=== PATIENT | female | born 1965 | race Caucasian/White ===

== ENCOUNTER 2024-01-12 18:20 | Emergency (ER) | payer MEDICARE, MEDICAID, SELFPAY ==
--- NOTE | ~2024-01-12 | CT_ITS ---
EXAMINATION: CTA chest PE protocol DATE: 01/12/2024 22:10 INDICATION: Shortness of breath. TECHNIQUE: Computed tomography angiography (CTA) of the chest was performed with 100 mL Omnipaque-350 intravenous contrast timed to evaluate the pulmonary arteries. Coronal maximum intensity projection 3D-reconstructions were created by the technologist. Automated exposure control and iterative reconst ruction technique were employed. The dose-length product was 244.04 mGy-cm. COMPARISON: Chest CT 08/07/2006 FINDINGS: The lungs demonstrate mild atelectasis. No pleural effusion. The heart size is normal. No p ericardial effusion. There is no pulmonary embolus. There is a small sliding hiatal hernia. There is mild thoracic spondylosis. IMPRESSION: 1. No pulmonary embolus. 2. Small sliding hiatal hernia. Reviewed, dictated and finalized at location A.
--- NOTE | ~2024-01-12 | XR_ITS ---
EXAMINATION: XR chest 1V portable DATE: 01/12/2024 19:27 INDICATION: Weakness. TECHNIQUE: A single frontal view of the chest was obtained. COMPARISON: Chest 2 views 08/06/2006 FINDINGS: There is no pneumonia, pleural effusion, or pneumothorax. The heart size is normal. IMPRESSION: 1. No acute cardiopulmonary disease. Reviewed, dictated and finalized at location A.
[2024-01-12 18:25] VITALS: BP 144/80; PULSE 70; RESP 18; TEMP 36.4; O2SAT 97
[2024-01-12 19:07] LABS: Add Urine Microscopic? NO; Appearance Urine Clear (Clear); Bilirubin Urine Negative (Negative); Blood Urine Negative (Negative); Color Urine Yellow (Yellow); Glucose Urine UA Negative (Negative); Ketones Urine Negative (Negative); Leukocyte Esterase Ur Negative LEU/UL (Negative); Nitrate Urine Negative (Negative); Protein Urine Negative (Negative); Specific Grav Ur 1.005 (1.001-1.035); Urobilinogen Urine 0.2 mg/dL (<2.0)
--- NOTE | 2024-01-12 19:20 | ED.WEAKNESS ---
HPI - Weakness General Chief complaint: Weakness <Elizabeth Carter APRN - Last Filed: 01/12/24 19:27> Stated complaint: FATIGUE FOR A WHILE <Elizabeth Carter APRN - Last Filed: 01/12/24 19:27> Time Seen by Provider: 01/12/24 19:10 <Elizabeth Carter APRN - Last Filed: 01/12/24 19:27> Focused HPI: Patient is a 59-year-old female who presents to the ER with increased weakness and tiredness that started a while ago. She reports she has a history of congestive heart failure, cardiac issues, high blood pressure and osteoporosis. Patient reports she has been unable to get in to see her primary care provider for a while and does not have an appointment with him until February so she wanted to come in and get checked out. she reports she has not been feeling like herself. Patient reports she wears compression socks but she has increased bilateral lower extremity swelling. She endorses recent shortness of breath and a swollen right knee. Patient denies any chest pain, signs or symptoms of illness, or one-sided weakness/ tingling/ numbness. GENERAL: Well-appearing, well-nourished, and in no acute distress. HEAD: Normocephalic, atraumatic. CHEST: Clear to auscultation. ?No respiratory distress. Swollen bilateral lower extremities. HEART: Regular rate and rhythm.? NEURO: ?Alert and oriented x3. Patient screened in triage and initial orders placed.? ?Additional care and disposition to be based upon?diagnostic testing and treatment. <Elizabteh Carter APRN - Last Filed: 01/12/24 19:27> Related Data Home medications: Home Medications Medication Instructions Recorded Confirmed calcium carbonate 600 mg PO BID 09/23/23 09/23/23 cholecalciferol (vitamin D3) 1,250 1,250 mcg PO MONTHLY 09/23/23 09/23/23 mcg (50,000 unit) capsule denosumab 60 mg/mL subcutaneous 60 mg subcut [id number] 09/23/23 09/23/23 syringe (Prolia) <Elizabeth Carter APRN - Last Filed: 01/12/24 19:27> Allergies/Adverse reactions: Allergies Allergy/AdvReac Type Severity Reaction Status Date / Time morphine Allergy Mild Unknown Verified 01/12/24 20:35 Sulfa (Sulfonamide Allergy Unknown Unknown Verified 01/12/24 20:35 Antibiotics) sulfamethoxazole Allergy Unknown Unknown Verified 01/12/24 20:35 trimethoprim Allergy Unknown Unknown Verified 01/12/24 20:35 <Elizabeth Carter APRN - Last Filed: 01/12/24 19:27> Review of Systems Review of Systems: All systems are reviewed and are negative unless stated otherwise in the HPI. <Rony Scherer MD - Last Filed: 01/12/24 22:35> PMFSH Past Medical History Medical History: Medical History Osteomyelitis Osteoporosis <Elizabeth Carter APRN - Last Filed: 01/12/24 19:27> Family History Family History: Family History Father Hypertension <Elizabeth Carter APRN - Last Filed: 01/12/24 19:27> Social History Social History: Social History Smoking status: Never smoker Alcohol intake: never Substance use: never Substance use type: does not use <Elizabeth Carter APRN - Last Filed: 01/12/24 19:27> Exam Narrative: General: Alert, awake, afebrile, in no acute distress. HEENT: PERRL, no rhinorrhea, no post nasal drip, oropharynx clear. Neck: Trachea midline, no JVD, no lymphadenopathy. Cardiovascular: Regular rate and rhythm, no murmurs, rubs or gallops, no peripheral edema. Respiratory: Clear to auscultation bilaterally, no tachypnea, no wheezing, no rhonchi, no rubs, no respiratory distress. Abdomen: Soft, nontender, nondistended, no rebound, no guarding, no peritoneal signs. Musculoskeletal: No joint swelling or deformity, normal muscle tone. Skin: No rashes or petechia, no signs of infection. Psychiatric: Alert and oriented, normal behavior and judgm
--- NOTE | 2024-01-12 19:28 | ECG_ITS ---
Test Date: 2024-01-12 20:17:27 Measurements Intervals [place] Rate: 64 P: 58 WY: 159 QRS: 19 QRSD: 88 T: 50 QT: 358 QTc: 371 Interpretive Statements SINUS RHYTHM LOW QRS VOLTAGE IN PRECORDIAL LEADS [QRS DEFLECTION < 1.0 mV IN CHEST LEADS] No previous ECG available for comparison Electronically Signed On 01-13-2024 09:41:11 CDT by Mely El M.D.
[2024-01-12 20:24] VITALS: BP 136/88; PULSE 69; PULSE 74; RESP 18; O2SAT 99
[2024-01-12 20:39] LABS: Basophils Absolute Auto 0.1 K/mm3 (0.0-0.1); Basophils Percent Auto 0.9 % (0.2-1.2); Eosinophils Absolute Auto 0.2 K/mm3 (0-0.3); Eosinophils Percent Auto 2.8 % (0-4.4); Hematocrit 41.4 % (37.0-47.0); Immature Granulocyte Absolute 0.01 K/mm3 (0.00-0.031); Immature Granulocyte Percent A 0.2 % (0-0.5); Lymphocytes Absolute Auto 1.73 K/mm3 (0.9-3.2); Lymphocytes Percent Auto 32.6 % (18.3-44.2); Mean Corpuscular HGB Conc 33.8 g/dl (32-36); Mean Corpuscular Hemoglobin 31.7 pg (26-34); Mean Corpuscular Volume 93.9 fl (80-100); Mean Platelet Volume 10.9 fl (7.4-10.4); Monocytes Absolute Auto 0.5 K/mm3 (0.1-0.6); Monocytes Percent Auto 9.8 % (2.6-8.5); Neutrophils Absolute Auto 2.9 K/mm3 (1.3-6.7); Neutrophils Percent Auto 53.7 % (45.5-73.1); Platelet Count Result 216 k/mm3 (150-375); Red Blood Count 4.41 M/mm3 (4.2-5.4); Red Cell Distribution Width 13.2 % (11.5-14.5); White Blood Count 5.3 K/mm3 (4.5-10.0)
[2024-01-12 20:50] LABS: Alanine Aminotransferase 21 U/L (6-35); Albumin Level 4.4 g/dL (3.5-5.1); Alkaline Phosphatase 68 U/L (38-126); Anion Gap 8 mmol/L (4-12); Aspartate Amino Transferase 23 U/L (14-36); Bilirubin,Total 0.4 mg/dL (0.2-1.3); Blood Urea Nitrogen 18 mg/dL (7-17); Carbon Dioxide 28 mmol/L (22-30); Chloride 101 mmol/L (98-107); Estimated Glomerular Filt Rate > 60; Glucose 96 mg/dL (65-110); Potassium 3.7 mmol/L (3.4-5.0); Prothrombin Time 13.3 Seconds (11.1-14.7); Sodium 137 mmol/L (137-145)
[2024-01-12 20:51] LABS: Partial Thromboplastin Time 30.2 Seconds (22.3-36.8)
[2024-01-12 21:01] LABS: NT Pro B Type Natriuretic Pept 261 pg/mL (19.9-100); Troponin I < 0.012 ng/mL (0.000-0.034)
--- NOTE | 2024-01-12 23:00 | PC.NURSE ---
Upon dc, patient was demanding to receive a cab voucher because she did not want to call her from who lives in another city. Pt advised that there are stipulations to patients receiving cab vouchers and that a ride to [place] typically costs about $20-25. Patient stated she did not want to pay that and demanded that I speak with the charge nurse about it. ED Charge, Caridad, notified and stated pt will not be receiving voucher. Pt informed and stated she will be calling to make a complaint. Pt given phone numbers for the local [employer] companies. This RN offered pt help with carrying her belongings to waiting room and patient denied stated she is not satisfied with her care.
== END 2024-01-12 23:00 | disposition home or self-care (01) ==
PROVIDERS: Registered Nurse; Emergency Provider Emergency Medicine; PCP Internal Medicine Gastroenterology
DX: R53.1 Weakness (principal)
CPT/HCPCS: 36415; 71045; 71275; 80053; 81003; 83735; 83880; 84484; 85025; 85610; 85730; 93005; 99284; Q9967

== ENCOUNTER 2024-09-27 11:00 | Outpatient (CLI) | payer MEDICARE, MEDICAID, SELFPAY ==
--- NOTE | ~2024-09-27 | DEXA_ITS ---
Bone Density Report Name: MARILOU ANDERS Age: 59 Sex: Female Ethnicity: White Date of : 1965 Indication: postmenopausal; screening for osteoporosis; height loss; prior fracture; hysterectomy; Referring Provider: ANGELINA, RICKY Study: Bone densitometry was performed. Exam Date: September 27, 2024 Accession number: [id number] Bone Density: Region BMD T-score Z-score Classification AP Spine(L1-L4) 0.970 -0.7 0.8 Normal Femoral Neck (Right) 0.596 -2.3 -1.0 Osteopenia Total Hip (Right) 0.838 -0.9 0.1 Normal World Health Organization criteria for BMD impression classify patients as: Normal (T-score at or above -1.0), Osteopenia (T-score between -1.0 and -2.5), or Osteoporosis (T-score at or below -2.5). 10-year Fracture Risk: FRAX not reported because: Prior hip or vertebral fracture Treated for osteoporosis Clinical Information Provided by Patient: Have had a previous hip or vertebral fracture Has had a low trauma fracture Is being treated for osteoporosis Has used the following medications: Prolia (i.e. denosumab), Vitamin D, Calcium Has the following medical conditions: Hysterectomy Patient maximum height was 64 Menopause Age: 38 Onset of menses at age 15 Number of children 2 Impression: The patient has low bone mass, based on the Right Femoral Neck T-score. The patient has risk factors, including: previous fracture. Discussion: It is important to ask patients whether they are taking their medications and to encourage continued and appropriate compliance with their osteoporosis therapies to reduce fracture risk. It is also important to review their risk factors and encourage appropriate calcium and vitamin D intakes, exercise, fall prevention and other lifestyle measures. Follow-Up: Consider a repeat BMD and Vertebral Fracture Assessment (VFA) exam in 2 years or sooner if medically necessary, to reassess this patient's status. Reported by: BERKLEY on 09/27/2024 11:30:00 AM. Reviewed, dictated and finalized at location A.
--- OUTSIDE RECORDS SUMMARY | 2024-09-27 11:14 | XMS_ITS ---
Author Organization [facility] Address [address] [place] [address] Care Team Providers Care Nurse Quality Name Role Phone Deena Cason Primary Care Provider REASON FOR VISIT new pt;seen at [facility] Encounters Encounter Location Date Provider Diagnosis [address] [facility] [place] [address] 04/14/2023 Deena Cason Plan Of Treatment No Information Progress Notes * Nabeel HOLLEYOB: 4 (59 yo F)Acc No.[id number]:04/14/2023 UNLOCKED PROGRESS NOTE Patient: Karina WHITT Provider: Dave Cason :1965 A ge:58 Y S ex:Female Date:04/14/2023 [facility] Subjective: * Chief Complaints: * 1 . new pt;seen at [facility]. * Medical History: Objective: * Vitals: Assessment: Plan: * Treatment: * * Electronic signature of Deena Cason MD, [id number] on 09/27/2024 at 11:14 AM CDT Sign off status: Pending * Provider: Dave Cason Date: 04/14/2023 Generated for Dustin doherty/Pepper/Gissell on: 0 09/27/2024 11:14 AM CDT
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
--- OUTSIDE RECORDS SUMMARY | 2024-09-27 11:14 | XMS_ITS | Referral Summary ---
Author Organization [facility] Address [facility] [place] [address] Care Team Providers Care Enrollment Clerk Name Role Phone Sheridan Ball MD Primary Care Provider Allergies Active Allergy Reactions Criticality Noted Date Comments Morphine Anaphylaxis,Other (See comments) High 2016 Per pt, during Med Hx interview -she experiences bladder shutdown with Morphine Opioids - Morphine Analogues Sulfa (Sulfonamide Antibiotics) Medications celecoxib (CeleBREX) 200 mg capsule celecoxib 200 mg caps Active CIPROFLOXACIN HCL ORAL ciprofloxacin hcl 250 mg tabs Active difluprednate (DUREZOL) 0.05 % drops durezol 0.05 % emul Active fluorometholon e (FML) 0.1 % ophthalmic suspension fluorometholone 0.1 % susp Active methylPREDNISo lone (MEDROL DOSEPACK) 4 mg Dosepack methylprednisolone 4 mg tablets in a dose pack Active ofloxacin (OCUFLOX) 0.3 % ophthalmic solution ofloxacin 0.3 % soln Active naproxen (NAPROSYN) 375 mg tablet naproxen 375 mg tabs Active cycloSPORINE (RESTASIS) 0.05 % ophthalmic emulsion restasis 0.05 % emul Active timolol (TIMOPTIC) 0.5 % ophthalmic solution timolol maleate 0.5 % soln Active traMADoL (ULTRAM) 50 mg tablet tramadol hcl 50 mg tabs Active triamcinolone (KENALOG) 0.1 % cream triamcinolone acetonide 0.1 % crea Acti ve moxifloxacin (VIGAMOX) 0.5 % ophthalmic solution vigamox 0.5 % soln A ctive alendronate (FOSAMAX) 70 mg/75 mL solution TAKE 75 ML BY MOUTH every week 12/26/19 Active atorvastatin (LIPITOR) 20 mg tablet atorvastatin 20 mg tablet TAKE ONE TABLET BY MOUTH EVERY DAY Active calcium carbonate (TUMS) 500 mg (200 mg elemental) chewable tablet Take 1 tablet by mouth daily Active Prolia 60 mg/mL syringe INJECT ONE ML under the skin EVERY SIX MONTHS 01/24/20 Active dorzolamide-ti molol (COSOPT) 2-0.5 % ophthalmic solution Cosopt (PF) 2 %-0.5 % eye drops in a dropperette INSTILL 1 DROP INTO AFFECTED EYE(S) BY OPHTHALMIC ROUTE 2 TIMES PER DAY Active dorzolamide-ti molol (COSOPT) 2-0.5 % ophthalmic solution instill one DROP IN EACH EYE TWICE DAILY 01/09/20 22 Active ergocalciferol (VITAMIN D) 50,000 unit capsule Take 50,000 Units by mouth once a week Active ergocalciferol (VITAMIN D) 50,000 unit capsule TAKE ONE CAPSULE BY MOUTH every week WITH a meal 12/31/19 Active fluticasone propionate (FLONASE) 50 mcg/actuation nasal spray fluticasone propionate 50 mcg/actuation nasal spray,suspension Active gabapentin (NEURONTIN) 400 mg capsule Take 400 mg by mouth 2 (two) times a day 01/18/20 22 Active latanoprost (XALATAN) 0.005 % ophthalmic solution latanoprost 0.005 % eye drops Active lifitegrast (Xiidra) 5 % dropperette Xiidra 5 % eye drops in a dropperette Active Xiidra 5 % dropperette instill ONE drop IN EACH EYE TWICE DAILY 01/18/20 22 Active Myrbetriq 25 mg tablet extended release 24 hr TAKE ONE TABLET BY MOUTH EVERY DAY swallowing whole with water, DO not CRUSHED, chew and/or DIVIDE 12/28/19 22 Active moxifloxacin (VIGAMOX) 0.5 % ophthalmic solution Vigamox 0.5 % eye drops Active predniSONE (DELTASONE) 10 mg tablet prednisone 10 mg tablet Take by oral route. Activ e tafluprost (ZIOPTAN) 0.0015 % dropperette Zioptan (PF) 0.0015 % eye drops in a dropperette INSTILL 1 DROP INTO AFFECTED EYE(S) BY OPHTHALMIC ROUTE ONCE DAILY Active timoloL (BetimoL) 0.5 % ophthalmic solution Betimol 0.5 % eye drops Active timolol (TIMOPTIC) 0.25 % ophthalmic solution timolol 0.25 % eye drops INSTILL 1 DROP INTO AFFECTED EYE(S) BY OPHTHALMIC ROUTE 2 TIMES PER DAY Active valACYclovir (VALTREX) 500 mg tablet valacyclovir 500 mg tablet Active carboxymethylc ellulos/glycer in (REFRESH OPTIVE OPHT) Administer 1 drop into affected eye(s) 2 (two) times a day Activ e oxybutynin XL (DITROPAN-XL) 10 mg 24 hr tablet Take 10 mg by mouth daily Active Active Problems Problem Noted Date Diagnosed Date Diagnosis unknown 03/18/2022 Adhesive capsulitis of shoulder 03/18/2022 Brain concussion 03/18/2022 Shoulder pain 03/18/2022 Enthesopathy of hip region 03/18/2022 Hip pain 03/18/2022 Osteoarthritis 03/18/2022 Spinal enthesopathy 03/18/2022 Hiatal hernia 08/26/2019 Bipolar 1 disorder 03/31/2019 Psychosis 03/31/2019 Encephalopathy 11/02/2017 Overview (03/18/2022): Last Assessment & Plan: Suspected stress and psychogenic relate Monitor Reassure Neurology consulted No metabolic Hypokalemia 11/02/2017 Overview (03/18/2022): Last Assessment & Plan: Replacement protocol Renal insufficiency 11/02/2017 Overview (03/18/2022): Last Assessment & Plan: Avoid NSAIDs Avoid nephrotoxic agents Monitor renal levels and lytes Reassure Increase fluids. Altered mental state 11/01/2017 Overview (03/18/2022): Last Assessment & Plan: Suspected psychogenic and dynamics Neurology consulted CT head is negative reassure Monitor UDS is negative Ethanol is negative. Concussion without loss of consciousness 10/14/2 016 Overview (03/18/2022): Last Assessment & Plan: Incident happened 01/05/16 With headache, memory problems and intermittent dizziness, improving MRI Brain: no acute process Continue pain management PRN (Naprosyn) PCP follow up upon dc, patient from [place] Follow clinically Immunizations Immunization Administration Dates Next Due Tdap 2016 Social History Tobacco Use Types Packs/Day Years Used Date Smoking Tobacco: Never Assessed Comments Unknown Sex and Gender Information Value Date Recorded Sex Assigned at Not on file Legal Sex Female 12:42 AM SAW OFFBEARER Gender Identity Not on file Sexual Orientation Not on file Last Filed Vital Signs Vital Sign Reading Time Taken Comments Blood Pressure - - Pulse - - Temperature - - Respiratory Rate - - Oxygen Saturation - - Inhaled Oxygen Concentration - - Weight 81.1 kg (178 lb 12.8 oz) 03/18/2022 8:19 AM SAW OFFBEARER Height 161.9 cm (5' 3.75) 03/18/2022 8:19 AM CS T Body Mass Index 30.93 03/18/2022 8:19 AM SAW OFFBEARER Plan of Treatment Not on file Medical Devices Implanted Type Area Cable Ferry Operator Device Identifier Shelf Expiration Date Model / Serial / Lot Lt Total Hip Arthroplasty + Screws [place]: [place] [address] [employer] [facility] [place] [address] [employer] [facility] MEDIC[employer] ADVANTAGE Care Teams Enrollment Clerk Relationship Specialty Start Date End Date Sheridan Ball MD PCP - General Gastroenterology 01/31/22
--- OUTSIDE RECORDS SUMMARY | 2024-09-27 11:14 | XMS_ITS | Patient Health Record ---
Author Organization [facility] Address [address] [place] [address] Care Team Providers Care Car Hostler Name Role Phone Deena Cason Primary Care Provider Reason For Referral No Information Plan Of Treatment No Information Insurance Providers Payer Name Payer Address Payer Phone Subscriber Number Group Number Insured Name Patient Relationship to Insured Coverage Start Date Coverage End Date MEDICARE PART A [address] [place] [address] [id number] Karina Holley Self - patient is the insured 4 MEDICAID [address] [place] [address] [id number] Karina Holley Self - patient is the insured 4
--- OUTSIDE RECORDS SUMMARY | 2024-09-27 11:15 | XMS_ITS | Clinical Summary ---
Author Organization [facility] Address [facility] [place] [address] Care Team Providers Care Appliances Sample Maker Name Role Phone Sheridan Ball MD Primary [...] PCP follow up upon dc, patient from [place] Follow clinically Immunizations Immunization Administration Dates Next Due Tdap 2016 Surgical History Surgery Date Site/Laterality Comments HIP SURGERY Hip Surgery - (Added by TW Conv) [place] TOTAL ABDOMINAL HYSTERECT W/WO RMVL TUBE OVARY Hysterectomy - (Added by TW Conv) Medical History Medical History Date Comments Personal history of diseases of the blood and blood-forming organs and certain disorders involving the immune mechanism History of an emia - (Added by TW Conv) Personal history of other di seases of the nervous system and sense organs History of glaucoma - (Added by TW Conv) Social History Tobacco Use Types Packs/Day Years Used Date Smoking Tobacco: Never Assessed Comments Unknown Sex and Gender Information Value Date Recorded Sex Assigned at Not on file Legal Sex Female 12:42 AM PLAN REP Gender Identity Not on file Sexual Orientation Not on file Obstetrics History Last Filed Vital Signs Vital Sign Reading Time Taken Comments Blood Pressure - - Pulse - - Temperature - - Respiratory Rate - - Oxygen Saturation - - Inhaled Oxygen Concentration - - Weight 81.1 kg (178 lb 12.8 oz) 03/18/2022 8:19 AM PLAN REP Height 161.9 cm (5' 3.75) 03/18/2022 8:19 AM CS T Body Mass Index 30.93 03/18/2022 8:19 AM PLAN REP Plan of Treatment Health Maintenance Due Date Last Done Comments Breast Cancer Screening-Mammogram 1965 Cervical Cancer Screening 1965 Colon Cancer Screening-Colonoscopy 1965 Depression Screening 1965 Hepatitis C Screening 1965 Hepatitis B Screening 01/07/1982 Regular Well Visit/Exam 18-64 01/07/1982 Zoster Vaccine (1 of 2) 01/07/2014 Covid-19 Vaccine (2 - 2023-2 5 season) 2023 03/05/2021 Influenza Vaccine (Season Ended) 2024 DTaP/Tdap/Td Vaccine (2 - Td or Tdap) 01/07/2026 2016 Pneumococcal vaccine <65 Aged Out No longer eligible based on patient's age to complete this topic Medical Devices Implanted Type Area Irrigation Foreman Device Identifier Shelf Expiration Date Model / Serial / Lot Lt Total Hip Arthroplasty + Screws Left: Hip Insurance [employer] [facility] MEDICARE ADVANTAGE [facility] Address: [address] [address] [place] [address] [employer] [facility] MEDICARE ADVANTAGE Care Teams Appliances Sample Maker Relationship Specialty Start Date End Date Sheridan Ball MD PCP - General Gastroenterology 01/31/22
--- OUTSIDE RECORDS SUMMARY | 2024-09-27 11:15 | XMS_ITS | Clinical Summary ---
Author Organization [facility] [employer] Address [address] [place] [address] Care Team Providers Care Pollution Control Technician Name Role Phone Logan Evangelista MD Primary Care Provider Source Comments [facility] [employer],non-owned Affiliates and Associated Physician Practices is amultiple site organization consisting of ambulatory clinics and hospital sitesin [place], [place], [place] and [place]. This disclosure is being madepursuant to the Care Everywhere program and may not contain all information available regarding this patient. Last updated 17.[facility] [employer] Family History Medical History Relation Name Comments Cancer - Colon Father Relation Name Status Comments Father Social History Tobacco Use Types Packs/Day Years Used Date Smoking Tobacco: Never Comments Unknown Sex and Gender Information Value Date Recorded Sex Assigned at Not on file Legal Sex Female 11:48 AM CDT Gender Identity Not on file Sexual Orientation Not on file Last Filed Vital Signs Vital Sign Reading Time Taken Comments Blood Pressure 122/83 12/27/2019 8:56 AM CDT Pulse 86 12/27/2019 8:56 AM CDT Temperature 36.4 C (97.6 F) 12/27/2019 8:56 AM CDT Respiratory Rate 16 12/27/2019 8:56 AM CDT Oxygen Saturation 100% 12/27/2019 8:56 AM CDT Inhaled Oxygen Concentration - - Weight 80.9 kg (178 lb 6.4 oz) 12/27/2019 8:56 A M CDT Height 162.6 cm (5' 4) 12/27/2019 8:56 AM CDT Body Mass Index 30.62 12/27/2019 8:56 AM CDT Plan of Treatment Health Maintenance Due Date Last Done Comments COLOGUARD (AGES 45-75) - COLON CA SCREENING 1964 COLON MONITORING 1964 COLONOSCOPY - COLON CA SCREENING 1964 CT COLONOGRAPHY - COLON CA SCREENING 1964 Colorectal Cancer Screening 1964 FIT - COLON CA SCREENING 1964 FLEX SIG - COLON CA SCREENING 1964 MAMMOGRAM 1964 HIV SCREENING 01/07/1979 HEPATITIS C SCREENING 01/03/1982 DTAP/TDAP/TD VACCINES (1 - Tdap) 01/07/1983 PNEUMOCOCCAL VACCINE 50+ (1 of 1 - PCV) 01/07/2014 ZOSTER VACCINE (1 of 2) 01/07/2014 SCREENING FOR DIABETES 11/03/2020 8, 11/02/2017, 11/02/2017, Additional history exists LIPID TESTING 11/02/2022 11/02/2017 COVID-19 VACCINE ( season) 2023 DEPRESSION SCREENING 03/30/2024 INFLUENZA VACCINE (Season Ended) 2024 Respiratory Syncytial Virus (RSV) Vaccine Pt: or over 60 yrs (1 - 1-dose 75+ series) 01/07/2039 HEPATITIS B VACCINE Aged Out No longe r eligible based on patient's age to complete this topic HIB VACCINE Aged Out No longer eligi ble based on patient's age to complete this topic HPV VACCINE Aged Out No longer eligi ble based on patient's age to complete this topic MENINGOCOCCAL (Group B) VACCINE SHARED DECISION-MAKING Aged Out No longer eligible based on patient's age to complete this topic MENINGOCOCCAL GROUPS A/C/Y/W VACCINE Aged Out No longer eligible based on patient's age to complete this topic Insurance [address] [place] [address] MEDICAID - OUT OF STATE UHC MANAGED MEDICARE ADV Care Teams Pollution Control Technician Relationship Specialty Start Date End Date Logan Evangelista MD [address] [facility] [address] [place] [address] PCP - General 12/27/19
--- OUTSIDE RECORDS SUMMARY | 2024-09-27 11:15 | XMS_ITS | Data Portability ---
Author Organization [place] [facility] [employer], Main Office Address [address] [place] [address] Care Team Providers Care Lift Truck Operator Name Role Phone MANA GUZMAN Primary Care Provider MANA GUZMAN Referring Provider [phone] IGNACIO COLBY Referring Provider [phone] Assessment Encounter Date Assessment Date Assessment LastModified by Organization Details LastModified Time 02/02/2024 02/02/2024 The patient has moderately severe primary osteoarthritis of the right knee joint. She is having a recent flare of pain we talked about treatment options today in detail we are going to start with a course of physical therapy oral prednisone and a shot of cortisone. She will hold on the diclofenac while she is taking the oral prednisone. Then she may resume the diclofenac I have advised her to give it time for the medications to work. At her request under sterile conditions I injected the patient's right knee joint in the office with 4 cc 0.5% bupivacaine and 20 mg of Kenalog. Patient tolerated procedure well. She will do a course of physical therapy I will see her back in 6 weeks to see what impact treatment has had. We talked about icing of the knee as well when necessary. She voiced understanding and agreed with the above plan she will call for any further problems difficulties or questions. [email or web address] Not available 02/02/2024 10:39:32 Plan of Treatment Reminders Order Date Submit Date Provider Last Modified By Organization Details Last Modified Time Details Appointments Any 15 2024 11:00A M Klarissa jones MD Not available Not available Not available Lab lipid panel, serum 2024 025 [facility], [address] [place], [address], 08/04/2024 11:58:10 CMP, serum or plasma 2024 025 [facility], [address] [place], [address], 08/04/2024 11:58:13 TSH + free T4, serum 2024 025 [facility], [address] [place], [address], 08/04/2024 11:58:11 CBC w/ auto diff 2024 025 [facility], [address] [place], [address], 08/04/2024 11:58:14 vitamin D, 25-hydrox y, total, serum 2023 024 [facility] (Lab), [address] [place], [address], 02/08/2024 07:35:52 lipid panel, serum 2023 024 [facility] (Lab), [address] [place], [address], 02/08/2024 07:35:53 CBC w/ auto diff 2023 024 [facility] (Lab), [address] [place], [address], 02/08/2024 07:35:53 TSH, serum or plasma 2023 024 [facility] (Lab), [address] [place], [address], 02/08/2024 07:35:53 CMP, serum or plasma 2023 024 [facility] (Lab), [address] [place], [address], 02/08/2024 07:35:53 glycohemo globin, total, blood 2023 [facility] (Lab), [address] [place], [address], 02/08/2024 07:35:53 Referral gynecolog ist referral - Please call patient to schedule an appointme nt. Thank you. 2024 025 [facility], [address], [address], [place], [address], 08/01/2024 17:58:37 physical therapist referral - Patient to schedule 2023 024 [facility], [address] , [address], [place], [address], 02/04/2024 11:13:42 orthopedi c surgeon referral - Patient currently scheduled for . Note from provider: Right knee osteoarth ritis-shahzad nful 2023 024 [email or web address] [facility], [address], [place], [address], 02/01/2024 10:10:46 Procedures injection /aspirati on joint/bur sa (PROC) 2023 [email or web address] In-Office Order, Internal Use Only DO Not Attach Compendium DO Not Attach Compendium, Do Not Delete/merge, [id number] 02/02/2024 10:35:20 Surgeries None recorded. Imaging DEXA, axial skeleton - Please call patient to schedule. 2024 025 [email or web address] [facility], [address], [address], [place], [address], 09/01/2024 17:17:46 MAMMO, screening , digital, bilateral - Please call patient to schedule. 2023 024 [email or web address] [facility] [address] [place], [address], 03/10/2024 15:39:22 Medication Orders diclofena c sodium 75 mg tablet,de layed release 2024 025 [facility], [address] [place] [address], [id number], 04/12/2024 11:08:48 ergocalci ferol (vitamin D2) 1,250 mcg (50,000 unit) capsule 2024 025 [facility], [address] [place] [address], [id number], 09/07/2024 17:08:05 gabapenti n 400 mg capsule 2024 025 [facility], [address] [place] [address], [id number], 09/07/2024 17:08:07 Myrbetriq 25 mg tablet,ex tended release 2024 025 [facility], [address] [place] [address], [id number], 05/09/2024 12:24:30 oxybutyni n chloride ER 5 mg tablet,ex tended release 24 hr 2024 025 [facility], [address] [place] [address], [id number], 09/07/2024 17:08:08 valacyclo vir 500 mg tablet 2024 025 [facility], [address] [place] [address], [id number], 05/09/2024 12:24:30 atorvasta tin 20 mg tablet 2024 025 [facility], [address] [place] [address], [id number], 09/07/2024 17:08:08 bupivacai ne HCl 0.5 % (5 mg/mL) injection solution 2023 [facility], [address] [place] [address], [id number], 04/12/2024 10:09:28 Kenalog 10 mg/mL suspensio n for injection 2023 [facility], [address] [place] [address], [id number], 04/12/2024 10:09:51 prednison e 10 mg tablets in a dose pack 2023 [facility], [address] [place] [address], [id number], 04/12/2024 10:10:07 diclofena c sodium 75 mg tablet,de layed release [facility] [address] [place] [address], [id number], 06/22/2024 15:04:33 Patient TargetsNo targets recorded. Patient Instructions Encounter Date Encounter Id Patient Instructions Last Modified By Organization Details Last Modified Time 02/01/2024 [id number] Follow up in 2 weeks for Medicare Annual Wellness Obtain labs Tests: Referral: [facility]-Osteoar thritis right knee Recommend: Tetanus vaccine Shingles vaccine Not available 02/01/2024 09:37:50 04/12/2024 [id number] dementia rating scale-2* MATTHEW Not available 04/12/2024 11:36:06 multi-dimensiona l health assessment questionnaire* Not available 04/12/2024 10:35:08 care plan* Not available 04/12 10:35:08 advance directiv es: care instructions Not available 04/12/2024 10:35:08 advance care planning: care instructions Not available 04/12/2024 10:35:08 [place] Advance Directives Not available 04/12/2024 10:35:08 Follow up in 6 months and as needed Prescriptions sent to pharmacy Tests: Referral: Recommend: Pneumococcal vaccine Tetanus vaccine Shingles vaccine Personalized Health Plan and Screening Recommendations Advance Directives - Do you have one? No You have indicated that you are capable of preparing your advance care directive Advance Directives - Do we have your advance directive on file in your health record? Primary Prevention/Interven tion (prevents or decreases the chance of common diseases from occurring) Smoking Risk: Non Smoker Alcohol Misuse Screening: Negative Weight: Overweight try to lose 10% of your body weight Physical activity: Need more exercise/physical activity minimum of 20-30 minutes activity that causes mild breathlessness/day Nutrition: Average Refer to attached handout Heart-Healthy Diet: After Your Visit Fall Risk (screened today): Intermediate Refer to attached handout Preventing Falls: After your Visit Vaccines Pneumococcal: No further needed Influenza: Recommended today, but you have declined Chronic Disease Risks Stroke: Low Risk I have no recommendations Heart Attack: Low risk I have no recommendations Clogging of the Arteries: Low risk I have no recommendations Diabetes: Low Risk I have no recommendations Secondary Prevention/Interven tion (detects treatable diseases before they may cause symptoms, disability, or ) Breast Cancer Screening with mammogram: No screening necessary Cervical/Uterine/Ov magali Cancer Screening: No screening necessary Osteoporosis Screening: No screening necessary Date Screening Last Performed: Colon Cancer Screening: Cologuard (DNA stool test) No screening necessary Date Screening Last Performed: Eye Disease Screening: No Eye exam necessary Dementia Risk: Intermediate I have no recommendations Depression Screening: Negative Not available 04/12/2024 10:35:03 Reason for Referral Orthopedic Surgeon Referral for Osteoarthritis Patient currently scheduled for 02/02/2024.Note from provider: Right knee osteoarthritis-painful Referring Physician: Mana Guzman, Internal Medicine, Encounter Date: 02/01/2024 Physical Therapist Referral for Pain of right knee joint Patient to schedule Referring Physician: Walker Novak, Orthopedic Surgery, Encounter Date: 02/02/2024 Mail Clerk Referral for We woman health examination Please call patient to schedule an appointment. Thank you. Referring Physician: Klarissa Lyles, Internal Medicine, Encounter Date: 08/01/2024 Results Created Date Observation Date Name Description Value Unit Range Abnormal Flag Note LastModifiedBy Organization Detail LastModifiedTime 08/05/1908/04/2024 LIPID PANEL , STAND CHAVO cholesterol, total 175 mg/dL <200 normal Not Available [employer] [address] [address] [place], [address], 08/04/2024 11:58:10 08/05/19 25 08/04/2024 LIPID PANEL , STAND CHAVO HDL cholesterol 67 mg/dL > or = 50 normal Not Available [facility] [address] [address] [address], [place], [address], 08/04/2024 11:58:10 08/05/19 25 08/04/2024 LIPID PANEL , STAND CHAVO triglyceride s 48 mg/dL <150 normal Not Available [employer] [facility] [address], [place], [address], 08/04/2024 11:58:10 08/05/19 25 08/04/2024 LIPID PANEL , STAND CHAVO LDL-choleste rol 94 mg/dL _(lisy c) normal Refer ence range : <100 Susana able range <100 mg/dL for prima ry preve ntion ; <70 mg/dL for patie nts with CHD or diabe tic patie nts with > or = 2 CHD risk facto rs. LDL-C is now calcu lated using the Tamar n-Hop kins calcu latio n, which is a valid ated novel metho d provi ding syd r accur acy than the Fried josiah equat ion in the estim ation of LDL-C . Tamar ochoa SS et al. SHRUTI. 2013; 310(1 9): 2061- 2068 (http ://ed ucati on.Qu estDi Pronto Insurances. com/f aq/FA Q164) Not Available [employer] [facility] [address] [address] [place], [address], 08/04/2024 11:58:10 08/05/19 25 08/04/2024 LIPID PANEL , STAND CHAVO chol/HDLC ratio 2.6 (calc ) <5.0 normal Not Available [address], [address], 08/04/2024 11:58:10 08/05/19 25 08/04/2024 LIPID PANEL , STAND CHAVO non HDL cholesterol 108 mg/dL _(lisy c) <130 normal For patie nts with diabe carlene plus 1 major ASCVD risk facto r, treat ing to a non-H DL-C goal of <100 mg/dL (LDL- C of <70 mg/dL ) is gayle wetzel optio n. Not Available [address], [address], 08/04/2024 11:58:10 08/05/1908/04/2024 TSH+F REE T4 TSH 0.79 mIU/L 0.40-4 .50 normal Not Available [address], [address], 08/04/2024 11:58:11 08/05/1908/04/2024 TSH+F REE T4 T4, free 1.2 NG/dL 0.8-1. 8 normal Not Available [address], [address], 08/04/2024 11:58:11 08/05/19 25 08/04/2024 COMPR EHENS BRITTON METAB OLIC PANEL glucose 94 mg/dL 65-99 normal Fasti ng refer ence inter josh Not Available [address], [address], 08/04/2024 11:58:13 08/05/19 25 08/04/2024 COMPR EHENS BRITTON METAB OLIC PANEL urea nitrogen (BUN) 10 mg/dL 7-25 normal Not Available [address], [address], 08/04/2024 11:58:13 08/05/19 25 08/04/2024 COMPR EHENS BRITTON METAB OLIC PANEL creatinine 0.68 mg/dL 0.50-1 .05 normal Not Available [address], [address], 08/04/2024 11:58:13 08/05/19 25 08/04/2024 COMPR EHENS BRITTON METAB OLIC PANEL eGFR 100 mL/mi n/1.7 3m2 > or = 60 normal Not Available [address], [address], 08/04/2024 11:58:13 08/05/19 25 08/04/2024 COMPR EHENS BRITTON METAB OLIC PANEL BUN/creatini ne ratio SEE NOTE: (calc ) 6-22 Not Repor cheng: BUN and Creat inine are withi n refer ence range . Not Available [address], [address], 08/04/2024 11:58:13 08/05/19 25 08/04/2024 COMPR EHENS BRITOTN METAB OLIC PANEL sodium 138 mmol/ L 135-14 6 normal Not Available [address], [address], 08/04/2024 11:58:13 08/05/19 25 08/04/2024 COMPR EHENS BRITTON METAB OLIC PANEL potassium 3.7 mmol/ L 3.5-5. 3 normal Not Available [address], [address], 08/04/2024 11:58:13 08/05/19 25 08/04/2024 COMPR EHENS BRITTON METAB OLIC PANEL chloride 101 mmol/ L 98-110 normal Not Available [address], [address], 08/04/2024 11:58:13 08/05/19 25 08/04/2024 COMPR EHENS BRITTON METAB OLIC PANEL carbon dioxide 27 mmol/ L 20-32 normal Not Available [address], [address], 08/04/2024 11:58:13 08/05/19 25 08/04/2024 COMPR EHENS BRITTON METAB OLIC PANEL calcium 9.3 mg/dL 8.6-10 .4 normal Not Available [address], [address], 08/04/2024 11:58:13 08/05/19 25 08/04/2024 COMPR EHENS BRITTON METAB OLIC PANEL protein, total 6.8 g/dL 6.1-8. 1 normal Not Available [address], [address], 08/04/2024 11:58:13 08/05/19 25 08/04/2024 COMPR EHENS BRITTON METAB OLIC PANEL albumin 4.6 g/dL 3.6-5. 1 normal Not Available [address], [address], 08/04/2024 11:58:13 08/05/19 25 08/04/2024 COMPR EHENS BRITTON METAB OLIC PANEL globulin 2.2 g/dL_ (calc ) 1.9-3. 7 normal Not Available [address], [address], 08/04/2024 11:58:13 08/05/19 25 08/04/2024 COMPR EHENS BRITTON METAB OLIC PANEL albumin/glob ulin ratio 2.1 (calc ) 1.0-2. 5 normal Not Available [address], [address], 08/04/2024 11:58:13 08/05/19 25 08/04/2024 COMPR EHENS BIRTTON METAB OLIC PANEL bilirubin, total 0.9 mg/dL 0.2-1. 2 normal Not Available [address], [address], 08/04/2024 11:58:13 08/05/19 25 08/04/2024 COMPR EHENS BRITTON METAB OLIC PANEL alkaline phosphatase 68 U/L 37-153 normal Not Available [facility] [employer] [address], [address], 08/04/2024 11:58:13 08/05/19 25 08/04/2024 COMPR EHENS BRITTON METAB OLIC PANEL AST 15 U/L 10-35 normal Not Available [address], [address], 08/04/2024 11:58:13 08/05/19 25 08/04/2024 COMPR EHENS BRITTON METAB OLIC PANEL ALT 17 U/L 6-29 normal Not Available [address], [address], 08/04/2024 11:58:13 08/05/19 25 08/04/2024 CBC (INCL UDES DIFF/ PLT) white blood cell count 5.5 thous and/u L 3.8-10 .8 normal Not Available [address], [address], 08/04/2024 11:58:14 08/05/19 25 08/04/2024 CBC (INCL UDES DIFF/ PLT) red blood cell count 4.46 sebas on/uL 3.80-5 .10 normal Not Available [address], [address], 08/04/2024 11:58:14 08/05/19 25 08/04/2024 CBC (INCL UDES DIFF/ PLT) hemoglobin 14.1 g/dL 11.7-1 5.5 normal Not Available [facility] [address], [address], 08/04/2024 11:58:14 08/05/1908/04/2024 CBC (INCL UDES DIFF/ PLT) hematocrit 43.7 % 35.0-4 5.0 normal Not Available [address], [address], 08/04/2024 11:58:14 08/05/1908/04/2024 CBC (INCL UDES DIFF/ PLT) MCV 98.0 fL 80.0-1 00.0 normal Not Available [facility] [address], [address], 08/04/2024 11:58:14 08/05/1908/04/2024 CBC (INCL UDES DIFF/ PLT) MCH 31.6 pg 27.0-3 3.0 normal Not Available [facility] [address], [address], 08/04/2024 11:58:14 08/05/19 25 08/04/2024 CBC (INCL UDES DIFF/ PLT) MCHC 32.3 g/dL 32.0-3 6.0 normal For adult s, a sligh t decre ase in the calcu lated MCHC value (in the range of 30 to 32 g/dL) is most likel y not clini azul signi raghu t; ale er, it shoul d be inter prete d with cauti on in [facility] n with other red cell lindsey eters and the patie nt's clini lisy condi tion. Not Available [facility] [address], [address], 08/04/2024 11:58:14 08/05/1908/04/2024 CBC (INCL UDES DIFF/ PLT) RDW 13.8 % 11.0-1 5.0 normal Not Available [facility] [address], [address], 08/04/2024 11:58:14 08/05/19 25 08/04/2024 CBC (INCL UDES DIFF/ PLT) platelet count 243 thous and/u L 140-40 0 normal Not Available [address], [address], 08/04/2024 11:58:14 08/05/19 25 08/04/2024 CBC (INCL UDES DIFF/ PLT) MPV 11.6 fL 7.5-12 .5 normal Not Available [address], [address], 08/04/2024 11:58:14 08/05/19 25 08/04/2024 CBC (INCL UDES DIFF/ PLT) absolute neutrophils 4048 cells /uL 1500-7 800 normal Not Available [address], [address], 08/04/2024 11:58:14 08/05/19 25 08/04/2024 CBC (INCL UDES DIFF/ PLT) absolute lymphocytes 1073 cells /uL 850-39 00 normal Not Available [address], [address], 08/04/2024 11:58:14 08/05/19 25 08/04/2024 CBC (INCL UDES DIFF/ PLT) absolute monocytes 319 cells /uL 200-95 0 normal Not Available [address], [address], 08/04/2024 11:58:14 08/05/19 25 08/04/2024 CBC (INCL UDES DIFF/ PLT) absolute eosinophils 22 cells /uL 15-500 normal Not Available [facility] [address], [address], 08/04/2024 11:58:14 08/05/19 25 08/04/2024 CBC (INCL UDES DIFF/ PLT) absolute basophils 39 cells /uL 0-200 normal Not Available [facility] [address], [address], 08/04/2024 11:58:14 08/05/19 25 08/04/2024 CBC (INCL UDES DIFF/ PLT) neutrophils 73.6 % normal Not Available [facility] [address], [address], 08/04/2024 11:58:14 08/05/19 25 08/04/2024 CBC (INCL UDES DIFF/ PLT) lymphocytes 19.5 % normal Not Available [facility] [address], [address], 08/04/2024 11:58:14 08/05/19 25 08/04/2024 CBC (INCL UDES DIFF/ PLT) monocytes 5.8 % normal Not Available [facility] [address], [address], 08/04/2024 11:58:14 08/05/19 25 08/04/2024 CBC (INCL UDES DIFF/ PLT) eosinophils 0.4 % normal Not Available [facility] [address], [address], 08/04/2024 11:58:14 08/05/19 25 08/04/2024 CBC (INCL UDES DIFF/ PLT) basophils 0.7 % normal Not Available [facility] [address], [address], 08/04/2024 11:58:14 08/05/19 25 08/04/2024 CLIEN T EDUCA TION TRACK ING client education tracking The Requi sitio n we recei lucita did not inclu de a [facility] accou nt numbe r. To preve nt delay s in testi ng and proce ssing of your order s pleas e provi de the follo wing infor matio n with every order submi tted: [facility] accou nt numbe r and accou nt name Clien t addre ss Clien t phone and fax numbe r NPI numbe r of order ing physi edu along with the physi edu name. NO COLLE CTION DATE RECEI LUCITA. WE HAVE USED THE DATE THE SPECI MEN WAS RECEI LUCITA BY THIS LABOR ATORY THE COLLE CTION DATE. IF THIS IS INCOR RECT, PLEAS E CONTA CT CLIEN T SERVI VINICIUS. PHONE PALE R: [phone] Not Available [facility] [address] [place], [address], 08/04/2024 11:58:16 02/02/20 24 01/26/2024 XR, knee, 3 view No observ ation record ed. [email or web address] Not Available 2023 13:58:38 08/16/1901/06/2023 imagi ng/di agnos tic resul t No observ ation record ed. [facility] [address], [place], [address], 08/15/2024 15:30:42 Result Notes None recorded. Problems Name Problem SNOMED Code Status Onset Date Resolution Date Notes Provider Name and Address Organization Details Recorded Time Spinal enthesopa thy 30718308 Active Mana Guzman APRN [address], [address] [address], [place], [address] , [employer] 4 07:57:27 Concussio n injury of brain 261927409 Active Not Available [facility] 3 12:49:58 Disorder of shoulder 563773765 Active Not Available [facility] 3 12:49:59 Abdominal pain 35061480 Completed Not Available [facility] 3 12:49:59 Enthesopa thy of hip region 47572285 Active Not Available [facility] 3 12:49:59 Knee pain Completed Not Available [facility] 3 12:49:59 Osteoarth ritis 789210836 Active Mana Guzman APRN [address], [facility] [address], [place], [address] , [employer] 4 07:57:24 Adhesive capsuliti s of shoulder 304348382 Active Not Available [facility] 3 12:49:59 Painless rectal bleeding 680851415 Completed Not Available [facility] 3 12:49:59 Pain of shoulder region 08822265 Active Not Available [facility] 3 12:49:59 Pain of hip region 26111184 Active Not Available [facility] 3 12:49:59 Urinary tract infectiou s disease 97508865 Completed Not Available [facility] 3 12:49:59 Hiatal hernia 02356448 Active 2019 Mana Guzman APRN [address], [address], [place], [address] , [facility] [employer] [facility] 4 07:57:21 Pain of left hip joint 92960960076 9100 Active 2022 Livier Sifuentes [facility], [employer] [facility] 3 09:55:11 Osteoporo sis 57211035 Active 2023 Klarissa arriaga MD [address], [address], [place], [address] , [employer] [facility] 5 17:29:52 Hyperlipi demia 71940791 Active 2023 Klarissa arriaga MD [address], [address], [place], [address] , [employer] [facility] 5 17:29:07 Gastroeso phageal reflux disease 242230481 Active 2023 Mana Guzman APRN [address], [address], [place], [address] , [employer] [facility] 4 07:58:33 Vitamin D deficienc y 19043131 Active 2023 Mana Guzman APRN [address], [address], [place], [address] , [employer] [facility] 4 07:59:02 Urinary incontine mse 608595587 Active 2023 Klarissa arriaga MD [address], [address], [place], [address] , [facility] [place] [facility] 5 17:29:24 Pain of right knee joint 75833573138 4100 Active 2023 MIRANDA Mason, [place] [facility] [place] [facility] 4 10:17:23 Osteoarth ritis of right knee joint 51172075914 9100 Active 2023 GORAN Pérez [address], [address], [place], [address] , [facility] 4 10:39:40 Herpes simplex 19571564 Active 2024 Klarissa arriaga MD [address], [address], [place], [address] , [facility] - [facility] [employer] [facility] 5 17:29:32 Neuropath y 798322000 Active 2024 Klarissa arriaga MD [address], [address], [place], [address] , [facility] [employer] [facility] [employer] [facility] 5 16:38:09 Glaucoma 87960261 Active 2024 Klarissa arriaga MD [address], [address], [place], [address] , [facility] [employer] [facility] 5 16:47:50 Senile osteoporo sis 33120394 Active 2024 JAYME Ibrahim, [facility] 5 11:41:17 Problem Notes None recorded. Procedures Surgical History Date Name Laterality Status Provider Name and Address Organization Details Recorded Time 04/12/19 Medicare Wellness CPT Code, subsequent completed Mana Guzman APRN [address], [address], [place], [address], [facility] 02/13/2024 10:26:16 Hysterectomy completed Ludivina Dietz CNA [place] [facility] 02/02/2024 10:16:46 Tonsillectomy completed JAYME Ferrera [facility] [employer] [facility] 08/19/2022 13:21:09 Hip surgery completed Aida Olea MA [facility] [employer] [facility] 02/01/2024 09:21:58 Imaging Results None recorded. Procedure Notes None recorded. Medical Equipment None Reported. Allergies Allergen ID Allergen Name Allergen Category Reaction Reaction Severity Criticality Documentation Date Start Date Code Code System Note Provider Name and Address Organization Details Recorded Time 11976 Substance with sulfonami de structure and antibacte rial mechanism of action (substanc e) medicatio n nausea Not available Not available 05/28/2022 [id number] SNOMED Not Available [facility] 3 12:53:57 77973 sulfameth oxazole / trimethop rim medicatio n rash Not available Not available 05/28/2022 94731 RxNorm blist ers Not Available [facility] 3 12:53:58 11102 morphine medicatio n other Not available Not available 05/28/2022 7052 RxNorm bladd er shut down Not Available [facility] 3 12:53:58 11704 tramadol medicatio n Not available Not available Not available 08/19/2022 22897 RxNorm JAYME Ferrera [facility] [employer] [facility] 3 13:18:38 Medications Name Sig Start Date Stop Date Status Note LastModified by Organization Details LastModified Time amoxicillin 500 mg capsule TAKE ONE CAPSULE FOUR TIMES DAILY UNTIL ALL TAKEN active Not Available Not Available No t Available latanoprost 0.005 % eye drops active Not Available Not Available Not Available Augmentin 875 mg-125 mg tablet Take 1 tablet every 12 hours by oral route for 10 days. 05/21 completed Not Available Not Available Not Available prednisone 10 mg tablet TAKE ONE TABLET 3 times daily FOR 3 DAYS, THEN ONE tab twice daily FOR 2 DAYS, THEN ONE tab ONCE a DAY FOR ONE DAY 04/12 completed Not Available Not Available Not Available atorvastati n 20 mg tablet TAKE ONE TABLET BY MOUTH EVERY NIGHT AT BEDTIME TO LOWER CHOLESTER OL active Not Available Not Available No t Available naproxen 375 mg tablet 06/02 completed Not Available Not Available Not Available haloperidol 5 mg tablet take 1 tablet by mouth at bedtime for 14 days 09/12 completed Not Available Not Available Not Available azithromyci n 250 mg tablet 02/02 completed Not Available Not Available Not Available ofloxacin 0.3 % eye drops INSTILL ONE DROP INTO THE RIGHT EYE TID UTD 09/24 completed Not Available Not Available Not Available benzonatate 200 mg capsule Take 1 capsule 3 times a day by oral route for 7 days. active Not Available Not Available No t Available bupivacaine HCl 0.5 % (5 mg/mL) injection solution Take 20 mg by injection route. 04/12 completed Not Available Not Available Not Available gabapentin 400 mg capsule TAKE ONE CAPSULE BY MOUTH TWICE DAILY EVERY MORNING & EVENING FOR NERVE PAIN active Not Available Not Available No t Available metronidazo le 500 mg tablet TAKE 1 TABLET EVERY 8 HOURS FOR 7 DAYS 02/01 completed Not Available Not Available Not Available valacyclovi r 500 mg tablet TAKE ONE TABLET BY MOUTH EVERY MORNING active Not Available Not Available No t Available ciprofloxac in 500 mg tablet TAKE ONE TABLET TWICE DAILY FOR 7 DAYS UNTIL ALL TAKEN 02/01 completed Not Available Not Available Not Available omeprazole 40 mg capsule,del ayed release take ONE capsule BY MOUTH EVERY DAY FOR stomach 01/31 completed Not Available Not Available Not Available tramadol 50 mg tablet Take 1 TABLET TID PRN active Not Available Not Available No t Available triamcinolo ne acetonide 0.1 % topical cream APPLY A THIN LAYER TO THE AFFECTED AREA(S) BY TOPICAL ROUTE 2 TIMES PER DAY active Not Available Not Available No t Available prednisone 10 mg tablets in a dose pack Take 1 tab by mouth, 3 times a day for 3 daysTake 1 tab by mouth 2 times a day for 2 daysTake 1 tab by mouth once a day for 1 day 04/12 completed Not Available Not Available Not Available Celebrex 200 mg capsule Take 1 capsule every day by oral route for 30 days. 06/02 completed Not Available Not Available Not Available prednisolon e acetate 1 % eye drops,suspe nsion INSTILL 1 DROP INTO AFFECTED EYE ONCE A DAY NEEDED 09/06 completed Not Available Not Available Not Available Kenalog 10 mg/mL suspension for injection Take 20 mg by injection route. 04/[address] [facility]: [phone] Not Available Not Available Not Available Betimol 0.5 % eye drops active Not Available Not Available Not Available benzonatate 100 mg capsule take ONE capsule BY MOUTH THREE TIMES DAILY NEEDED 08/19 completed Not Available Not Available Not Available cephalexin 500 mg capsule TAKE ONE CAPSULE BY MOUTH TWICE DAILY 01/31 completed Not Available Not Available Not Available erythromyci n 5 mg/gram (0.5 %) eye ointment apply a SMALL AMOUNT IN THE LEFT EYE TWICE DAILY 01/14 completed Not Available Not Available Not Available Rhonda-D 12 Hour 60 mg-120 mg tablet,exte nded release Take 1 tablet twice a day by oral route. 03/06 completed Not Available Not Available Not Available oxybutynin chloride ER 5 mg tablet,exte nded release 24 hr TAKE ONE TABLET BY MOUTH EVERY MORNING FOR BLADDER active Not Available Not Available No t Available sertraline 25 mg tablet TAKE ONE TABLET BY MOUTH EVERY DAY 08/19 completed Not Available Not Available Not Available timolol 0.25 % eye drops INSTILL 1 DROP INTO AFFECTED EYE(S) BY OPHTHALMI C ROUTE 2 TIMES PER DAY 2014 active Not Available Not Available Not Avai lable diclofenac sodium 75 mg tablet,judd yed release TAKE ONE TABLET BY MOUTH TWICE DAILY EVERY MORNING & EVENING WITH FOOD FOR PAIN active Not Available Not Available No t Available dorzolamide 22.3 mg-timolol 6.8 mg/mL eye drops instill ONE drop into BOTH eyes TWICE DAILY 01/14 completed Not Available Not Available Not Available montelukast 10 mg tablet take ONE tablet BY MOUTH EVERY DAY 01/07 completed Not Available Not Available Not Available hydroxyzine HCl 25 mg tablet Take 1 tablet 3 times a day by oral route. 06/02 completed Not Available Not Available Not Available mupirocin 2 % topical ointment [place] Q 12 H active Not Available Not Available No t Available ergocalcife rol (vitamin D2) 1,250 mcg (50,000 unit) capsule TAKE ONE CAPSULE BY MOUTH EVERY OTHER WEEK FOR VITAMIN DEFICIANC Y active Not Available Not Available No t Available methylpredn isolone 4 mg tablets in a dose pack Use as directed on package active Not Available Not Available No t Available Cipro 250 mg tablet Take 1 tablet every 12 hours by oral route for 3 days. active Not Available Not Available No t Available oxybutynin chloride 5 mg tablet TAKE 1/2 TABLET BY MOUTH TWICE DAILY 01/31 completed Not Available Not Available Not Available fluticasone propionate 50 mcg/actuati on nasal spray,suspe nsion USE TWO SPRAYS in each nostril DAILY 08/01 completed Not Available Not Available Not Available naproxen 500 mg tablet TAKE ONE TABLET TWICE DAILY WITH MEALS active Not Available Not Available No t Available amoxicillin 500 mg-potassiu m clavulanate 125 mg tablet TAKE ONE TABLET BY MOUTH TWICE DAILY FOR 7 DAYS 01/14 completed Not Available Not Available Not Available aripiprazol e 10 mg tablet 04/12 completed Not Available Not Available Not Available Restasis 0.05 % eye drops in a dropperette INSTILL 1 DROP INTO AFFECTED EYE(S) BY OPHTHALMI C ROUTE EVERY 12 HOURS 2015 active Not Available Not Available Not Avai lable Vigamox 0.5 % eye drops active Not Available Not Available Not Available alendronate 70 mg/75 mL oral solution TAKE 75 ML BY MOUTH every week 01/31 completed Not Available Not Available Not Available nitrofurant oin monohydrate /macrocryst als 100 mg capsule Take 1 capsule every 12 hours by oral route for 5 days. 08/19 completed Not Available Not Available Not Available ibandronate 150 mg tablet TAKE 1 TABLET ONCE A MONTH 09/06 completed Not Available Not Available Not Available ProAir HFA 90 mcg/actuati on aerosol inhaler INHALE 2 PUFFS PO Q 4 H 09/06 completed Not Available Not Available Not Available Prolia 60 mg/mL subcutaneou s syringe INJECT 1 ML SUBCUTANE OUSLY active Not Available Not Available No t Available lurasidone 40 mg tablet TAKE 1 TABLET BY MOUTH ONCE DAILY WITH FOOD 01/31 completed Not Available Not Available Not Available Zioptan (PF) 0.0015 % eye drops in a dropperette INSTILL 1 DROP INTO AFFECTED EYE(S) BY OPHTHALMI C ROUTE ONCE DAILY 2014 active Not Available Not Available Not Avai lable dorzolamide -timolol (PF) 2 %-0.5 % eye drops in a dropperette INSTILL ONE DROP IN EACH EYE TWICE DAILY EVERY MORNING & EVENING active Not Available Not Available No t Available Myrbetriq 25 mg tablet,exte nded release TAKE ONE TABLET BY MOUTH AT BEDTIME FOR BLADDER active Not Available Not Available No t Available Xiidra 5 % eye drops in a dropperette PLACE ONE DROP INTO BOTH EYES TWICE DAILY active Not Available Not Available No t Available Vitals Date Recorded Body height Body mass index (BMI) Body weight Body temperature Heart rate Oxygen saturation Oxygen saturation in Arterial blood by Pulse oximetry Systolic blood pressure Diastolic blood pressure Provider Name and Address Organization Details Last Updated DateTime 5 162.56 cm 29 kg/m2 24654.1 1 g 97.5 [degF] 88 /min 98 % 98 % 104 mm[Hg] 58 mm[Hg] Aida Olea MA [facility] [employer] 5 10:07:06 Date Recorded Body height Body mass index (BMI) Body weight Body temperature Heart rate Oxygen saturation Oxygen saturation in Arterial blood by Pulse oximetry Systolic blood pressure Diastolic blood pressure Provider Name and Address Organization Details Last Updated DateTime 5 162.56 cm 30.7 kg/m2 62324.0 3 g 99.1 [degF] 76 /min 97 % 97 % 102 mm[Hg] 68 mm[Hg] SELYWN Mathias [facility] [employer] 5 16:06:05 Date Recorded Body height Body mass index (BMI) Body weight Body temperature Heart rate Oxygen saturation Oxygen saturation in Arterial blood by Pulse oximetry Systolic blood pressure Diastolic blood pressure Provider Name and Address Organization Details Last Updated DateTime 4 162.56 cm 30 kg/m2 96711.6 6 g 97.7 [degF] 86 /min 97 % 97 % 108 mm[Hg] 58 mm[Hg] SELWYN Mathias [facility] [employer] 4 09:14:56 Date Recorded Body height Body mass index (BMI) Body weight Provider Name and Address Organization Details Last Updated DateTime 02/02/2024 162.56 cm 29.2 kg/m2 84822.7 g Ludivina Dietz CNA [facility] [employer] 02/02/2024 10:15:22 Social History Question Answer Notes LastModified by Organizat ion Details LastModified Time Tobacco Smoking Status Never Smoker Ankush Stallings, JAYME null, [place] [facility] 08/19/2022 13:20:39 What Is Your Level Of Caffeine Consumption? None Information not available 02/01/2024 In The 14 Days Before Symptom Onset, Have You Had Close Contact With A Laboratory-confirm ed COVID-19 While That Case Was Ill? No Information n ot available 02/01/2024 In The 14 Days Before Symptom Onset, Have You Had Close Contact With A Person Who Is Under Investigation For COVID-19 While That Person Was Ill? No Information not available 02/01/2024 What Type Of Diet Are You Following? REGULAR Information n ot available 02/01/2024 Have There Been Any Changes To Your Family Or Social Situation? No Information no t available 02/01/2024 Do You Use Insect Repellent Routinely? No Information not available 02/01/2024 Where Do You Live? Apartment Inform ation not available 02/01/2024 What Was The Date Of Your Most Recent Tobacco Screening? 08/01/2024 Information not available 08/01/2024 How Many Children Do You Have? 2 Information not available 02/01/2024 Do You Have Any Pets? No Information not available 02/01/2024 What Is Your Relationship Status? Information not available 02/01/2024 Do You Use Your Seat Belt Or Car Seat Routinely? Yes Information not available 02/01/2024 Do You Have Smoke And Carbon Monoxide Detectors In Your Home? Yes Information not available 02/01/2024 Are You Passively Exposed To Smoke? No Information no t available 02/01/2024 Are There Any Smokers In Your House? No Information not available 02/01/2024 Do You Use Sunscreen Routinely? No Information not available 02/01/2024 Have You Recently Traveled Abroad? No Information not available 02/01/2024 Do You Have Any Dietary Restrictions? No Information not available 02/01/2024 Sex: Unknown Functional Status Question Answer Note LastModified by Organizat ion Details LastModified Time Do you use any illicit or recreational drugs? No Information not available 08/01/2024 What is your level of alcohol consumption? None [email or web address] Information not available 08/19/2022 Are you currently employed? No Information not available 02/01/2024 What is your occupation? n/a [id number] Information not available 05/28/2022 What is your exercise level? None Information not available 02/01/2024 Mental Status Question Answer Note LastModified by Organization D etails LastModified Time Do you feel stressed (tense, restless, nervous, or anxious, or unable to sleep at night)? [id number] Information not available 02/01/2024 Family History Relationship Description Onset Age of this Age Resolved Age Notes LastModified by Organization Details LastModified Time Father Malignant tumor of colon [email or web address] Not available 2022 13:20:07 Maternal Grandmother Diabetes mellitus [email or web address] Not available 2023 10:16:20 Medical History Condition Response OBESITY Y OSTEOPOROSIS Y URINARY/BLADDER/KIDNEY PROBLEMS Y ARTHRITIS Y Gynecological History Statement/Question Response How many live births 2 Date of Last Pap Current Control Method Hysterectom y Date of Last Colonoscopy Date of Last Mammogram Date of LMP Obstetrics History GPAL:G 3 P 2 0 1 2 Type Value Multiple Births 0 Full Term 2 Induced 0 Spontaneous 1 Premature 0 Living 2 Ectopics 0 Total 3 Immunizations Vaccine Type Date Status Note Provider Nam e and Address Organization Details Recorded Time COVID-19, mRNA, LNP-S, PF, 30 mcg/0.3 mL dose 03/05/2021 completed Mana Guzman APRN [address], [address], [place], [address], [employer] 02/01/2024 09:26:31 COVID-19, mRNA, LNP-S, bivalent, PF, 30 mcg/0.3 mL dose 05/05/2022 completed Mana Guzman APRN [address], [address], [place], [address] [employer] 02/01/2024 09:26:31 Past Encounters Encounter ID Performer Location Encounter Start Date Encounter Closed Date Diagnosis/Indication Diagnosis SNOMED-CT Code Diagnosis ICD10 Code Diagnosis Note [id number] Kem Angela MD [facility] [place] Ortho Abel Sow [address] [place] [address] 01/14/2023 09:32:15 01/14/2023 14:25:09 Pain of left hip joint 3185450860 35343 M25.071 [id number] Klarissa arriaga MD [facility] [place] Internal Med [address] [facility] [address] [place] [address] 02/01/2024 09:04:01 02/01/2024 09:49:07 Gastroesophageal reflux disease 835999295 K21.9 Vitamin D deficiency 347 92189 E55.9 Hyperlipidemia 08871754 E78.5 Osteoarthritis 633596502 M19.90 Screening mammography 24 120994 Z12.31 [id number] Kem Angela MD [facility] [address] [place] [address] 02/02/2024 09:55:23 02/02/2024 10:37:26 Pain of right knee joint 0567359992 43178 M25.561 Osteoarthr itis of right knee joint 1100254062 14273 M17.11 [id number] Klarissa arriaga MD [facility] [place] Internal Med [address] [facility] [address] [place] [address] 04/12/2024 09:50:27 04/12/2024 10:39:34 Adult health examination 891917550 Z00.00 Screening for disorder 222244201 Z13.9 Hyperlipidemia 06535156 E78.5 Osteoarthritis 045120346 M19.90 Renewal of prescription 800692043 Z76.0 [id number] Klarissa arriaga MD [facility] [place] Primary Care [facility] [address] [address] [place] [address] 08/01/2024 15:43:13 08/01/2024 17:07:24 Screening due 533397150 Z13.9 C-scope: States that she did have a cologuard and it was 'negative' about a year ago with her prior PCP Dr Swartz, has declined any testing today 08/01/2024 Mammogram: States that she did have the test last in 12/2023 with her last PCP Dr Swartz and was told it was negative DEXA: Get thisOn prolia, she is able to self inject this and does wellAdvise d to get CMP and take calcium daily WWE: Get this if not done Get yearly flu shot, get Tdap if not doneCan do shingrix vaccineCan do RSV vaccineCan do prevnar #20 and COVID 19 boosters RTC in 6 months as per her request, states that she does not like to 'see doctors very often', states that she is to get and also move away to [place], [place] soon, do labs, ER if worse, she did verbalize her understand ing of the above Postmenopausal state 764 09922 Z78.0 Well woman health examination 408233902 Z01.419 Hyperlipidemia 70158523 E78.5 On atorvastat in 20mg dailyGet labs Urinary incontinence 165 635380 R32 On oxybutynin ER 5mg dailyOn muyrbetriq 25mg dailyDoes well Herpes simplex 90501894 B00.9 On valacyclov irDoes well on this dose Osteoporosis 31671213 M8 1.0 On proliaWill renew as needed Neuropathy 684245855 G62 .9 On gabapentin 400mg one bid Glaucoma 53242598 H40.11 90 See eye [id number] Klarissa arriaga MD [facility] Primary [facility] [address] [facility] [address] [place] [address] 08/03/2024 13:50:55 08/03/2024 14:21:32 Health Concerns Section Related Observation LastModified by Organization Detai ls LastModified Time None Recorded Concern Status LastModified by Organization Details LastModified Time None Recorded Advance Directives Directive None Recorded Payers Insurance Date Sequence Insurance Name Policy Number Policy Bruno Covered Member ID Bruno Member ID Guarantor Name 09/08/[address] [facility] (MEDICARE REPLACEMENT/A DVANTAGE - HMO) [id number] Karina Holley [id number] Karina Holley 09/08/2024 2 [place] Karina Holley [id number] Karina Holley Notes Date Note Type Note Provider Name and Address Organization Details Recorded Time 02/01/2024 text/html Karina presents today to establish care. She states that her right knee is hurting and she went to the ED. She states that she had an xray and it reveals osteoarthritis. Mana Guzman APRN [address], [place], [address], [facility] [employer] 02/01/2024 09:44:05 02/02/2024 text/html Patient returns today with a new problem she has right knee pain ongoing for couple of months now. Denies any specific trauma or injury. She states recently he got so bad she did go to the emergency room had x-rays performed at [facility]. X-rays demonstrated no acute fracture lesion or mass she does have mild to moderate tricompartmental osteoarthritis with particularly narrowed appearance in the medial compartment. She has small marginal osteophytes as well a lot of the pain is generalized in nature she does have tenderness on the medial more than lateral joint line, Today I reviewed the x-rays in detail today with the patient I agree with the above findings. She denies any loss of motion no effusion or swelling no erythema heat or other signs of infection but has lots of aching pain is using a rolling walker for support at this time because her knee feels as though it wants to give out. She is able to bear full weight was having pain about an 8 on a scale of 1-10 she started taking diclofenac recently prescribed by her primary doctor she started this yesterday but states it really has not helped so far. She has trouble standing walking for long periods has trouble squatting kneeling going up and down stairs and walks with a limp she comes in today for initial evaluation treatment of right knee pain as described. A new past medical history sheet was reviewed and signed on the intake sheet of today's date drug allergies current medications family social history previous surgical history 10 point review of systems was reviewed and discussed in detail today with the patient. GORAN Pérez [address], [place], [address], [place] [employer] 02/02/2024 10:40:54 04/12/2024 text/html Karina presents today for her Medicare annual Wellness exam. She states that her [employer]ODUCT [employer]NAGER gave her gabapentin for (according to patient) hormones. She was also put on oxybutynin. She states that she needs hormones because her hair is thin and her nails are brittle. She states that she has a knee brace on because her knee is really swollen, she states that orthopedics is aware. 02/01/2024Karina presents today to establish care. She states that her right knee is hurting and she went to the ED. She states that she had an xray and it reveals osteoarthritis. Mana Guzman APRN [address], [place], [address], [employer] 04/12/2024 10:38:47 08/01/2024 text/html OV 08/01/2024: H ere to establish care Present Hx:UINeuropathyGlaucom aHLDOP Here to discuss above and get labs Klarissa Lyles MD [address], [place], [address], [employer] 08/01/2024 17:08:27 OBGyn Episode No OBEpisode recorded.
--- OUTSIDE RECORDS SUMMARY | 2024-09-27 11:15 | XMS_ITS | Clinical Summary ---
Author Organization [facility] Address [address] [place] [address] Care Team Providers Care Outdoor Adventure Leader Name Role Phone Unavailable Primary Care Provider Unavailabl e Social History Tobacco Use Types Packs/Day Years Used Date Smoking Tobacco: Never Assessed Comments Unknown Sex and Gender Information Value Date Recorded Sex Assigned at Not on file Legal Sex Female 8:34 PM CDT Gender Identity Not on file Sexual Orientation Not on file Plan of Treatment Health Maintenance Due Date Last Done Comments Cervical Cancer Screening Pa p Smear (Age 30 to 64) Every 3 Years 1964 Colorectal Cancer Screening Colonoscopy (10 Years) 1964 Annual Physical 01/07/1967 Hepatitis C 01/07/1982 DTaP, Tdap and Td Vaccines ( 1 - Tdap) 01/07/1983 Cervical Cancer Screening Pa p with HPV Testing (Age 30 to 64) Every 5 Years 01/07/1994 Cervical Cancer Screening with HPV 01/07/1994 Mammogram Screening 2004 Pneumococcal Vaccine: 50+ Ye ars (1 of 1 - PCV) 01/07/2014 Zoster Vaccines (1 of 2) 01/07/2014 COVID-19 Vaccine (2023-2 5 season) 2023 RSV Immunization or 60+ Years (1 - 1-dose 75+ series) 01/07/2039 Meningococcal B Vaccine Aged Out No l onger eligible based on patient's age to complete this topic Meningococcal Vaccine Aged Out No hakeem gina eligible based on patient's age to complete this topic RSV Immunizations Under 20 Months Aged Out No longer eligible based on patient's age to complete this topic
== END 2024-09-27 11:01 | disposition home or self-care (01) ==
PROVIDERS: PCP Internal Medicine; Visit Provider Internal Medicine
DX: Z78.0 Asymptomatic menopausal state (principal); M85.88 Other specified disorders of bone density and structure, other site
CPT/HCPCS: 77080